=== PATIENT | female | born 1960 | race Caucasian/White ===

== ENCOUNTER → 2016-06-28 | Outpatient (CLI) | payer BC ==
[~2016-06-28] VITALS: Ht 165.1 cm; Wt 77.1 kg
[~2016-06-28] MED LIST: ASPIR 8181 MG PO; CALCIUM 600 +1 EAC1 PO; COUMADIN 1MG TAB1 M1 PO; DIOVAN320 MG PO; FIBER LAXATIVE500 MG PO; OMEPRAZOLE 20 M20 M1 PO; TOPROL XL25 MG PO; UNICOMPLEX M TA1 TA1 PO; VITAMIN D1000 UNI1 PO; VITAMIN E400 UNIT PO; VITAMINC500 PO
--- NOTE | ~2016-06-28 | P ---
[facility] [place] [place] [address] PROCEDURE REPORT Name: KARLA WOODYEDMUNDO NAIMA Room #: REG Rachael Duc.#: [id number] Admission: 06/28/16 Attend Phys: Jason Osorio MD Discharge: Date of : 64 Report #: [id number] THIS REPORT FOR: //name// CC: Jason Osorio Kai Quinn DATE OF SERVICE: 06/28/2016 PREOPERATIVE DIAGNOSIS: Pacemaker elective replacement indicator. POSTOPERATIVE DIAGNOSIS: Pacemaker elective replacement indicator. HISTORY: The patient is a 55-year-old with history of prior bicuspid aortic valve, status post mechanical AVR with resultant intermittent heart block status post dual chamber pacemaker implantation, whose device is currently at the elective replacement interval. She is here for generator exchange. ANESTHESIA: The patient underwent MAC anesthesia with no anesthesia-related complications. DESCRIPTION OF PROCEDURE: The patient underwent informed consent. We discussed the details of the procedure including the risks, which include but not limited to bleeding, infection and need for possible lead revisions as well as stroke or NV. She understood these risks and is willing to proceed. As such, she was brought to the EP laboratory in a fasting and sedated state and received IV vancomycin for antibiotic prophylaxis. She was prepped and draped in a sterile fashion. Next, I injected 10 mL of lidocaine at the prior incision site. Incision was made and the pocket was opened, I removed the anterior aspect of the capsule. I dissected the leads out of the pocket and then I disconnected the device and connected the new device, a tug test were performed and leads are functioning normally. An antibiotic pouch was placed over the device given her increased risk of infection and a mechanical aortic valve. The pocket was irrigated with vancomycin solution and then closed in 3 layers. Surgical glue was placed to the skin site. The patient awoke neurologically and hemodynamically intact with no complications and no significant bleeding. The explanted pacemaker was a [employer]onic model #AATDR01, serial number [id number]. The newly implanted device was a [employer] model CK7420, serial #[id number]. Atrial lead was a [employer]onic model #5076, serial [id number] with a P-wave of 3.3 millivolts, pacing impedance of 400 ohms and pacing threshold 0.5 volts at 0.4 milliseconds. RV lead was a [employer]onic model #5076, serial [id number]. This lead demonstrated R-wave of 4.6 millivolts, pacing impedance of 490 ohms, the pacing threshold 0.5 volts at 0.4 milliseconds. The device was programmed to the DDD 60-130 mode. CONCLUSIONS: [facility] [address] [place] [address] PROCEDURE REPORT Name: EDMUNDO VILLEGAS Room #: REG YARIEL Bonilla#: [id number] Admission: 06/28/16 Attend Phys: Jason Osorio MD Discharge: Date of : 64 Report #: [id number] 1. Successful pacemaker generator exchange. 2. Satisfactory atrial and ventricular pacing and sensing thresholds. <ELECTRONICALLY SIGNED> By: Jason Osorio MD 06/30/16 1227 0945 2048 Jason Osorio MD /nt
[2016-06-28 07:15] VITALS: BP 134/78
[2016-06-28 07:17] LABS: ABSOLUTE NEUTROPHILS 3.8 thou/uL (1.4-8.2); BASOPHILS 0.9 % (0.0-2.0); EOSINOPHILS 3.9 % (0.0-3.0); HEMATOCRIT 44.2 % (37.0-47.0); HEMOGLOBIN 15.3 gm/dL (12.0-15.0); LYMPHOCYTES 25.4 % (24.0-44.0); MCH 32.7 pg (26.0-34.0); MCHC 34.7 g/dL (28.0-37.0); MCV 94.2 fL (80.0-100.0); MONOCYTES 6.4 % (1.0-8.0); PLATELET COUNT 244 thou/uL (150-400); POLYS 63.4 % (36.0-66.0); RDW 12.9 % (10.5-14.5); WBC 6.1 thou/uL (4.0-11.0)
[2016-06-28 07:18] LABS: MANUAL DIFF NO
[2016-06-28 07:24] LABS: CALCIUM 8.2 mg/dL (8.5-10.1); CREATININE 0.7 mg/dL (0.6-1.0); POTASSIUM 4.6 mmol/L (3.5-5.1)
[2016-06-28 07:29] LABS: ALBUMIN 3.7 g/dL (3.4-5.0); TOTAL BILIRUBIN 0.6 mg/dL (<0.1-1.0); TOTAL PROTEIN 7.4 g/dL (6.4-8.2)
[2016-06-28 07:30] LABS: APTT 31.4 Seconds (24.5-32.8); INR 1.1; PROTIME 11.4 Seconds (9.3-11.4)
== END | disposition home or self-care (01) ==
LOC: CATH 06:45
PROVIDERS: Internal Medicine Cardiovascular Disease
DX: Z45.010 Encounter for checking and testing of cardiac pacemaker pulse generator [battery] (principal); I10 Essential (primary) hypertension; F17.210 Nicotine dependence, cigarettes, uncomplicated; K21.9 Gastro-esophageal reflux disease without esophagitis; Z98.890 Other specified postprocedural states
CPT/HCPCS: 62110; 62900; 70005

== ENCOUNTER → 2019-06-18 | Outpatient (CLI) | payer BC, OTHER | LOC: SJCVCIMAG 08:45 | DX: I08.2 Rheumatic disorders of both aortic and tricuspid valves (principal); I48.91 Unspecified atrial fibrillation; I10 Essential (primary) hypertension; I27.20 Pulmonary hypertension, unspecified ==

== ENCOUNTER → 2020-01-07 | Outpatient (CLI) | payer BC, OTHER | LOC: CAT 08:49 | PROVIDERS: ATTEND Internal Medicine | DX: Z72.0 Tobacco use (principal); M47.9 Spondylosis, unspecified; E27.8 Other specified disorders of adrenal gland ==

== ENCOUNTER → 2020-06-17 | Outpatient (CLI) | payer OTHER | LOC: SJCVCIMAG 08:56 | PROVIDERS: ATTEND Internal Medicine | DX: I07.1 Rheumatic tricuspid insufficiency (principal); I25.10 Atherosclerotic heart disease of native coronary artery without angina pectoris; I77.89 Other specified disorders of arteries and arterioles; I10 Essential (primary) hypertension; Z95.2 Presence of prosthetic heart valve ==

== ENCOUNTER → 2021-01-13 | Outpatient (CLI) | payer OTHER | LOC: CAT 09:08 | PROVIDERS: ATTEND Internal Medicine | DX: Z12.2 Encounter for screening for malignant neoplasm of respiratory organs (principal); Z87.891 Personal history of nicotine dependence ==